=== PATIENT | male | born 1935 | race Caucasian/White ===

== ENCOUNTER 2017-09-28 09:58 | Emergency (ER) | payer OTHER, MEDICARE ==
[2017-09-28] MEDS ORDERED: NS 500 ML IV ONE (10:17)
--- NOTE | 2017-09-28 10:33 | EDPHY ---
H & P Time Seen by Provider: 09/28/17 10:17 HPI/ROS: HPI Not eating well. Weakness. 81-year-old male by private vehicle with his . This patient is currently in an Alzheimer's memory care unit. He has a history of esophageal cancer. He is taking care of by enterprise services manager Dr. Redman. His tells me that every 3 months he has a procedure to remove scar tissue from his esophagus. He is due for another 1 of these procedures at this time. She states that his Seroquel was increased from 37.5 mg daily to 50 mg daily on September 05. Shortly after that she noticed that he was not eating. This has continued. She call the office of Dr. Redman today to try to get the patient in to be seen and have an endoscopy done. She could not get an appointment in Dr. Redman told her to bring the patient to our emergency department to be evaluated. ROS: Constitutional: No fever, no chills. As above. Eyes: No discharge. No changes in vision. ENT: No sore throat. No nasal congestion or rhinorrhea. Respiratory: No cough. No shortness of breath. Cardiac: No chest pain, no palpitations. Gastrointestinal: No abdominal pain, no vomiting, no diarrhea. Genitourinary: No hematuria. No dysuria or increased frequency with urination. Musculoskeletal: No back pain. No neck pain. No myalgias or arthralgias. Skin: No rashes. Neurological: No headache. No focal weakness or altered sensation. Past medical history: Aortic aneurysm, Alzheimer's, in memory care unit. Social history: Nonsmoker. No alcohol. Here with his . Physical Exam: General Appearance: Alert, no apparent distress. This patient is responding to questions appropriately and in full sentences. This patient appears well- hydrated and well-nourished. Eyes: Pupils equal and round no pallor or injection. No lid edema, erythema or injection. ENT, Mouth: Mucous membranes are moist. The pharyngeal tissues are unremarkable. No edema or swelling. No asymmetry suggestive of abscess. No erythema or exudates. Respiratory: There are no retractions, lungs are clear to auscultation anteriorly with good air movement bilaterally. Cardiovascular: Regular rate and rhythm. Tachycardia. No murmur. Gastrointestinal: Abdomen is soft and nontender, no masses, bowel sounds present. No focal tenderness at McBurney's point. No Oconnor sign. Neurological: Motor sensory function is grossly intact. Cranial nerves are normal. Gait is baseline. Skin: Warm and dry, no rashes. Musculoskeletal: Neck is supple and nontender. Extremities are symmetrical. All joints range without pain or impingement. Psychiatric: No agitation. No depression. Database: EKG: EKG time is 10:35 a.m.; EKG shows a narrow complex sinus tachycardia with a ventricular rate of 124. The ME, QRS, QT intervals are within normal limits. There are no ST-T wave changes indicative of ischemic or injury pattern. No evidence of right heart strain. Interpreted by me. Imaging: Procedures: Emergency department course: IV placed. Patient was placed on a restrictive preparation operator. Vital signs reviewed. Blood pressure 92/68, heart rate 127 in triage. IV was placed. He was started on IV normal saline with 500 cc to 1 L to be given over the next hour. EKG obtained and reviewed by myself. 11:20 a.m., spoke with Dr. Redman, the patient's enterprise services manager. He will speak with Dr. Rodas who is the enterprise services manager on-call for [facility]. Plan is likely endoscopy. 12:15 p.m., spoke with Dr. Redman. He will see this patient in his office for endoscopy and esophageal dilation. This plan was discussed with the patient and his . His is in full agreement. His will take him to Dr. Redman office from the emergency department. The patient's remaining emergency department course under my care has been uneventful. The patient was discharged in good condition with his . Customary return to emergency department precautions discussed with her. Differential Diagnosis: The differential diagnosis on this patient includes but is not limited to, dysphagia, dehydration, anemia, failure to thrive. This represents a partial list of diagnoses considered. These considerations are based on history, physical exam, past history, reassessment and diagnostic testing. Smoking Status: Former smoker Constitutional: Initial Vital Signs Temperature (C) 36.3 C 09/28/17 10:08 Heart Rate 127 H 09/28/17 10:08 Respiratory Rate 17 09/28/17 10:08 Blood Pressure 92/68 L 09/28/17 10:08 O2 Sat (%) 95 09/28/17 10:08 O2 Delivery Mode Room Air Allergies/Adverse Reactions: thiopental sodium [From Pentothal] Allergy (Intermediate, Verified 09/28/17 10: 06) agitation Home Medications: Medication Instructions Recorded Donepezil HCl [Aricept 5 MG (*)] 10 mg PO HS 05/05/14 Pantoprazole Sodium [Protonix 40mg 40 mg PO BID #60 tab 05/16/14 (*)] Sucralfate [Carafate 1gm/10ml Oral 1 gm PO ACHS #120 ml 05/16/14 Liquid (*)] Lorazepam 09/28/17 MIRTAZAPINE 09/28/17 QUEtiapine FUMARATE 09/28/17 Medical Decision Making - Data Points Laboratory Results: Laboratory Results 09/28/17 10:22 09/28/17 10:22 09/28/17 09/28/17 10:22 10:22 WBC 4.66 10^3/uL 10^3/uL (3.80-9.50) RBC 4.65 10^6/uL 10^6/uL (4.40-6.38) Hgb 13.1 g/dL L g/dL (13.7-17.5) Hct 40.9 % % (40.0-51.0) MCV 88.0 fL fL (81.5-99.8) MCH 28.2 pg pg (27.9-34.1) MCHC 32.0 g/dL L g/dL (32.4-36.7) RDW 14.6 % % (11.5-15.2) Plt Count 313 10^3/uL 10^3/uL (150-400) MPV 9.4 fL fL (8.7-11.7) Neut % (Auto) 73.0 % % (39.3-74.2) Lymph % (Auto) 11.6 % L % (15.0-45.0) [place] % (Auto) 10.1 % % (4.5-13.0) Eos % (Auto) 3.6 % % (0.6-7.6) Baso % (Auto) 1.5 % % (0.3-1.7) Nucleat RBC Rel Count 0.0 % % (0.0-0.2) Absolute Neuts (auto) 3.40 10^3/uL 10^3/uL (1.70-6.50) Absolute Lymphs (auto) 0.54 10^3/uL L 10^3/uL (1.00-3.00) Absolute Monos (auto) 0.47 10^3/uL 10^3/uL (0.30-0.80) Absolute Eos (auto) 0.17 10^3/uL 10^3/uL (0.03-0.40) Absolute Basos (auto) 0.07 10^3/uL 10^3/uL (0.02-0.10) Absolute Nucleated RBC 0.00 10^3/uL 10^3/uL (0-0.01) Immature Gran % 0.2 % % (0.0-1.1) Immature Gran # 0.01 10^3/uL 10^3/uL (0.00-0.10) Sodium 143 mEq/L mEq/L (135-145) Potassium 4.4 mEq/L mEq/L (3.5-5.2) Chloride 111 mEq/L H mEq/L (97-110) Carbon Dioxide 22 mEq/l mEq/l (22-31) Anion Gap 10 mEq/L mEq/L (8-16) BUN 15 mg/dL mg/dL (7-23) Creatinine 0.8 mg/dL mg/dL (0.7-1.3) Estimated GFR > 60 Glucose 83 mg/dL mg/dL (70-100) Calcium 9.1 mg/dL mg/dL (8.5-10.4) Total Bilirubin 1.4 mg/dL mg/dL (0.1-1.4) Conjugated Bilirubin 0.5 mg/dL mg/dL (0.0-0.5) Unconjugated Bilirubin 0.9 mg/dL mg/dL (0.0-1.1) AST 23 IU/L IU/L (17-59) ALT 24 IU/L IU/L (21-72) Alkaline Phosphatase 106 IU/L IU/L (38-126) Total Protein 6.5 g/dL g/dL (6.3-8.2) Albumin 3.5 g/dL g/dL (3.5-5.0) Lipase 115 IU/L IU/L (23-300) TSH 1.030 uIU/mL uIU/mL (0.465-4.680) Medications Given: Discontinued Medications Sodium Chloride (Ns) 500 mls @ 0 mls/hr IV EDNOW ONE; Wide Open PRN Reason: Protocol Stop: 09/28/17 10:18 Last Admin: 09/28/17 10:38 Dose: 500 mls Departure - Departure Disposition: Home, Routine, Self-Care Clinical Impression: Dysphagia, Dehydration Condition: Good Instructions: Chronic Dysphagia (DC) Additional Instructions: Read and follow provided instructions. You are to be at the office of Dr. Redman, gastroenterology, by 3:15 p.m. Today for esophageal dilation and endoscopy. Return to the emergency department for worsening symptoms or other serious concerns. Referrals: Sidney Redman MD [[facility] [place] - As per Instructions
[2017-09-28 10:37] LABS: PLATELET COUNT 313 10^3/uL (150-400)
--- NOTE | 2017-09-28 10:37 | CPEKG ---
Heart Rate: 124 RR Interval: 484 P-R Interval: 136 QRSD Interval: 84 QT Interval: 292 QTC Interval: 420 P [place]: 0 QRS [place]: -60 T Wave [place]: 135 EKG Severity - ABNORMAL ECG - EKG Impression: SINUS TACHYCARDIA EKG Impression: CONSIDER INFERIOR INFARCT EKG Impression: PROBABLE ANTEROSEPTAL INFARCT, AGE INDETERM EKG Impression: LATERAL LEADS ARE ALSO INVOLVED Electronically Signed By: Gordon Parra 28-Sep-2017 15:33:16
[2017-09-28 12:30] VITALS: BP 102/81
== END 2017-09-28 12:28 | disposition home or self-care (01) ==
DX: R13.10 Dysphagia, unspecified (principal); E86.0 Dehydration; E86.9 Volume depletion, unspecified; G30.9 Alzheimer's disease, unspecified; Z85.01 Personal history of malignant neoplasm of esophagus; Z87.891 Personal history of nicotine dependence